=== PATIENT | male | born 1975 | race Hispanic/Latino ===

== ENCOUNTER 2017-11-13 16:19 | Emergency (ER) | payer BC ==
--- NOTE | 2017-11-13 18:21 | RAD ---
3 VIEWS RIGHT SHOULDER: Date: 11/13/17 COMPARISON: None. HISTORY: Right shoulder pain. FINDINGS: Three views of the right [id number] show no evidence of acute fracture or dislocation. Ossification ad jacent to the greater trochanter may represent calcific tendinopathy at the rotator cuff. No degenera tive changes are seen. IMPRESSION: No evidence of acute osseous abnormality. POS: [facility]
== END 2017-11-13 18:18 | disposition home or self-care (01) ==
LOC: SCSER 16:19
DX: M25.511 Pain in right shoulder (principal); X50.0XXA Overexertion from strenuous movement or load, initial encounter; Y92.89 Other specified places as the place of occurrence of the external cause